=== PATIENT | female | born 1975 | race Caucasian/White ===

== ENCOUNTER 2019-06-04 08:21 | Emergency (ER) | payer OTHER ==
--- NOTE | 2019-06-04 08:38 | ERPHSYRPT ---
- History of Present Illness Time Seen by Provider: 06/04/19 08:38 Source: patient Exam Limitations: no limitations Physician History: The patient is a 44-year-old female who presents with a chief complaint of subjective fevers and chills that started this morning. 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 She endorsed some cough for the past month in addition to chest pain whenever she coughs. She was seen by her primary care provider within the last month and prescribed an antibiotic and steroids to take given her history of COPD. She will probably finished azithromycin earlier within the last month but did not take his steroids as prescribed. She denies headache, rhinorrhea, sore throat, shortness of breath with rest, active chest pain currently, dizziness, syncope. The patient reportedly still smokes cigarettes. she reportedly is up-to-date on her influenza vaccine disc disease Timing/Duration: today Allergies/Adverse Reactions: No Known Drug Allergies Allergy (Verified 06/04/19 08:39) Home Medications: Montelukast Sodium 10 mg [Singulair 10 MG] 1 ea DAILY 06/04/19 [History] Omeprazole 1 ea DAILY 06/04/19 [History] Paroxetine HCl [Paroxetine ER] 1 ea DAILY 06/04/19 [History] Umeclidinium Brm/Vilanterol Tr [Anoro Ellipta 62.5-25 Mcg INH] 1 ea DAILY [History] Hx Tetanus, Diphtheria Vaccination/Date Given: Yes Hx Influenza Vaccination/Date Given: No Hx Pneumococcal Vaccination/Date Given: No - Review of Systems Constitutional: Fever, Chills, Other (Diaphoresis) Ears, Nose, & Throat: No Ear Pain, No Ear Discharge, No Hearing Changes, No Nose Pain, No Nose Congestion, No Nose Discharge, No Sinus Drainage, No Epistaxis, No Mouth Pain, No Mouth Swelling, No Loose Teeth, No Throat Pain, No Throat Swelling Respiratory: Cough, Dyspnea on Exertion (SANCHEZ), No Dyspnea, No Stridor, No Wheezing Cardiac: No Chest Pain, No Edema, No Palpitations Abdominal/Gastrointestinal: No Symptoms, No Nausea, No Vomiting Genitourinary Symptoms: No Symptoms Musculoskeletal: No Symptoms Skin: No Symptoms Neurological: No Symptoms, No Dizziness Psychological: No No Symptoms Endocrine: No No Symptoms Hematologic/Lymphatic: No No Symptoms Immunological/Allergic: No No Symptoms All Other Systems: Reviewed and Negative - Past Medical History Pertinent Past Medical History: Yes Neurological History: Other ENT History: No Pertinent History Cardiac History: High Cholesterol, Hypertension Respiratory History: No Pertinent History Endocrine Medical History: No Pertinent History Musculoskeletal History: No Pertinent History GI Medical History: No Pertinent History Other Medical History: HYPERTENSION - Past Surgical History Past Surgical History: Yes Gastrointestinal: Cholecystectomy Female Surgical History: Tubal Ligation Other Surgical History: GALLBLADDER - Social History Smoking Status: Current every day smoker How long have you smoked: 17 YEARS Exposure to second hand smoke: No Drug Use: none Patient Lives Alone: No Significant Family History: no pertinent family hx - Nursing Vital Signs Nursing Vital Signs: Initial Vital Signs Temperature 98.0 F 06/04/19 08:33 Pulse Rate 79 06/04/19 08:33 Respiratory Rate 18 06/04/19 08:33 Blood Pressure 154/81 06/04/19 08:33 O2 Sat by Pulse Oximetry 98 06/04/19 08:33 Pain Scale Pain Intensity 0 - Physical Exam General Appearance: no apparent distress, alert Eye Exam: PERRL/EOMI, eyes nml inspection, photophobia Ears, Nose, Throat Exam: normal ENT inspection, TMs normal, pharynx normal, moist mucous membranes, No TM abnormal (L), No pharyngeal erythema, No tonsillar exudate Neck Exam: normal inspection, non-tender, supple Respiratory Exam: normal breath sounds, lungs clear, airway intact, No chest tenderness, No respiratory distress, No diminished breath sounds, No accessory muscle use Cardiovascular Exam: regular rate/rhythm, normal heart sounds, normal peripheral pulses, No murmur, No friction rub, No gallop, No tachycardia Gastrointestinal/Abdomen Exam: soft Back Exam: normal inspection Extremity Exam: normal inspection Neurologic Exam: alert, oriented x 3, cooperative, normal mood/affect Skin Exam: normal color, warm, dry, No rash, No petechiae, No jaundice, No abrasion - Course Nursing assessment & vital signs reviewed: Yes EKG Interpreted by Me: RATE (67), Sinus Rhythm, Left [place] Deviation, NORMAL ST-T , Other (Negative for STEMI) - Radiology Exams Chest X-ray Interpretation: Reviewed by me, Teleradiologist Report, Negative Lab/Rad Data: Laboratory Results 06/04/19 Range/Units 09:15 Influenza Type A Ag NEGATIVE (NEGATIVE) Influenza Type B Ag NEGATIVE (NEGATIVE) RSV (PCR) NEGATIVE (Negative) - Progress Progress: unchanged Counseled pt/family regarding: lab results, need for follow-up, rad results, smoking cessation - Departure Departure Disposition: Home, Extended Care Facility Clinical Impression: Viral syndrome Condition: Stable Critical Care Time: No Referrals: AIME WILLIAMSON NP [Primary Care Provider] - Instructions: Fever of Unknown Origin, Cough, Adult (DC) Additional Instructions: Please follow-up with your primary care provider as needed
[2019-06-04 08:39] VITALS: PULSE 79
[2019-06-04 10:11] LABS: INFLUENZA A NEGATIVE (NEGATIVE); INFLUENZA B NEGATIVE (NEGATIVE); RESPIRATORY SYNCTIAL VIRUS NEGATIVE (Negative)
[2019-06-04 11:01] VITALS: BP 160/113; O2SAT 99
--- NOTE | 2019-06-04 19:11 | XRAY ---
Indication: Cough and lightheaded. Comparison: April 28, 2019. PA/lateral chest remains clear. Heart is not enlarged. Bony thorax intact again with old right rib fractures. Impression: Stable nonacute chest. Comment: Preliminary interpretation was made by [facility]. No critical discrepancy.
== END 2019-06-04 11:01 | disposition home or self-care (01) ==
LOC: ED 08:21
DX: B34.9 Viral infection, unspecified (principal)
CPT/HCPCS: 71046; 87631; 99284

== ENCOUNTER 2021-06-27 16:14 | Emergency (ER) | payer OTHER ==
[2021-06-27 18:37] LABS: ALBUMIN 4.3 g/dL (3.5-5.0); ALKALINE PHOSPHATASE 82 U/L (38-126); ANION GAP 16.4 MEQ/L (5-15); BLOOD UREA NITROGEN 15 mg/dL (7-17); CHLORIDE 107 mmol/L (98-107); Carbon Dioxide 17 mmol/L (22-30); EST GLOMERULAR FILTRATION RATE > 60.0 ML/MIN; Glucose 107 mg/dL (74-106); NT PRO BNP 138 pg/mL (0-450); Potassium 3.8 mmol/L (3.5-5.1); SGOT/AST 29 U/L (14-36); SGPT/ALT 11 U/L (0-35); SODIUM 137 mmol/L (137-145)
--- NOTE | 2021-06-27 18:46 | ERPHSYRPT ---
- History of Present Illness Time Seen by Provider: 06/27/21 17:30 Historian: patient Exam Limitations: no limitations Patient Subjective Stated Complaint: Chest pain Triage Nursing Assessment: Patient ambulated back to ED and transferred self to bed. Patient A+O X3. Patient's skin pink, warm and dry. Patient complains of left sided rib pain that goes into chest 710 that started around 0300. Lungs clear a/p el. Physician History: Patient is a 46-year-old female presents to our ED with complaints of chest pain. Patient states she is experiencing left-sided chest pain radiating towards the center. Patient states the pain feels superficial as it was emanating from her left rib. Pain started this morning at approximately 3 AM. Patient denies trauma. No nausea no vomiting no diaphoresis. No rash. Patient denies a history of the same. Symptoms are mild to moderate in intensity. No specific worsening improving factors. Patient voices no other complaints concerns at this time. Timing/Duration: today Activities at Onset: none Quality: aching Location: other (Left chest wall with radiation toward central chest.) Severity of Pain-Max: moderate Severity of Pain-Current: mild Associated Symptoms: denies symptoms Prior Chest Pain/Cardiac Workup: no prior chest pain Nitro Today/Relief: no nitro taken today Aspirin Treatment Today: no aspirin today Allergies/Adverse Reactions: No Known Drug Allergies Allergy (Verified 06/27/21 17:20) Home Medications: Montelukast Sodium 10 mg [Singulair 10 MG] 1 ea DAILY 06/04/19 [History] Omeprazole 1 ea DAILY 06/04/19 [History] Paroxetine HCl [Paroxetine ER] 1 ea DAILY 06/04/19 [History] Umeclidinium Brm/Vilanterol Tr [Anoro Ellipta 62.5-25 Mcg INH] 1 ea DAILY 06/04/19 [History] Hx Tetanus, Diphtheria Vaccination/Date Given: Yes Hx Influenza Vaccination/Date Given: No Hx Pneumococcal Vaccination/Date Given: No Immunizations Up to Date: Yes Travel Risk - International Travel Have you traveled outside of the country in past 3 weeks: No - Coronavirus Screening Are you exhibiting any of the following symptoms?: No Close contact with a COVID-19 positive Pt in past 14-21 Days: No - Vaccine Status Have you recieved a Covid-19 vaccination: No - Review of Systems Constitutional: No Symptoms, No Fever, No Chills Eyes: No Symptoms Ears, Nose, & Throat: No Symptoms Respiratory: No Symptoms, No Cough, No Dyspnea Cardiac: No Symptoms, No Chest Pain, No Edema, No Syncope Abdominal/Gastrointestinal: No Symptoms, No Abdominal Pain, No Nausea, No Vomiting, No Diarrhea Genitourinary Symptoms: No Symptoms, No Dysuria Musculoskeletal: No Symptoms, No Back Pain, No Neck Pain Skin: No Symptoms, No Rash Neurological: No Symptoms, No Dizziness, No Focal Weakness, No Sensory Changes Psychological: No Symptoms Endocrine: No Symptoms Hematologic/Lymphatic: No Symptoms Immunological/Allergic: No Symptoms All Other Systems: Reviewed and Negative - Past Medical History Pertinent Past Medical History: Yes Neurological History: Other ENT History: No Pertinent History Cardiac History: High Cholesterol, Hypertension Respiratory History: No Pertinent History Endocrine Medical History: No Pertinent History Musculoskeletal History: No Pertinent History GI Medical History: No Pertinent History Other Medical History: HYPERTENSION - Past Surgical History Past Surgical History: Yes Gastrointestinal: Cholecystectomy Female Surgical History: Tubal Ligation Other Surgical History: GALLBLADDER - Social History Smoking Status: Never smoker How long have you smoked: 17 YEARS Exposure to second hand smoke: No Drug Use: none Patient Lives Alone: No Significant Family History: no pertinent family hx - Female History Hx Now: No - Nursing Vital Signs Nursing Vital Signs: Initial Vital Signs Pulse Rate 80 06/27/21 17:21 Respiratory Rate 18 06/27/21 17:21 Blood Pressure 157/76 06/27/21 17:21 O2 Sat by Pulse Oximetry 99 06/27/21 17:21 Pain Scale Pain Intensity 7 - Physical Exam General Appearance: no apparent distress, alert Eye Exam: PERRL/EOMI, eyes nml inspection Ears, Nose, Throat Exam: normal ENT inspection, moist mucous membranes Neck Exam: normal inspection, non-tender, supple, full range of motion Respiratory Exam: normal breath sounds, lungs clear, No respiratory distress Cardiovascular Exam: regular rate/rhythm, normal heart sounds Gastrointestinal/Abdomen Exam: soft, No tenderness, No mass Back Exam: normal inspection, No CVA tenderness, No vertebral tenderness Extremity Exam: normal inspection, normal range of motion Neurologic Exam: alert, oriented x 3, cooperative, normal mood/affect, sensation nml, No motor deficits Skin Exam: normal color, warm, dry Lymphatic Exam: adenopathy SpO2 Interpretation: normal SpO2: 100 O2 Delivery: Room Air - Course Nursing assessment & vital signs reviewed: Yes EKG Interpreted by Me: RATE (89), Sinus Rhythm, NORMAL AXIS, NORMAL INTERVALS - CT Exams Chest CT Interpretation: Tele-radiologist Report (No comps. Negative PE. Normal chest.) Ordered Tests: Active Orders 24 hr Category Date Time Status Hydrochloric Acid Operator STAT Care 06/27/21 17:36 Active EKG-ER Only STAT Care 06/27/21 17:35 Active IV Insertion STAT Care 06/27/21 17:35 Active Pulse Oximetry (ED) STAT Care 06/27/21 17:35 Active CHEST WITH CONTRAST [CT] Stat Exams 06/27/21 20:27 Taken CBC W DIFF Stat Lab 06/27/21 18:00 Completed CMP Stat Lab 06/27/21 18:00 Completed D-DIMER QUANTITATIVE Stat Lab 06/27/21 18:00 Completed Ferritin Stat Lab 06/27/21 Ordered Manual Differential NC Stat Lab 06/27/21 18:00 Completed NT PRO BNP Stat Lab 06/27/21 18:00 Completed TROPONIN Q3H Lab 06/27/21 18:00 Completed TROPONIN Q3H Lab 06/27/21 22:00 Completed TROPONIN Q3H Lab 06/27/21 23:45 Ordered TROPONIN Q3H Lab 06/28/21 02:45 Ordered TROPONIN Q3H Lab 06/28/21 05:45 Ordered Medication Summary Discontinued Medications Generic Name Dose Route Start Last Admin Trade Name Freq PRN Reason Stop Dose Admin Aspirin 324 mg 06/27/21 19:00 06/27/21 19:06 Aspirin 81 Mg Tab.Chew PO 06/27/21 19:01 324 mg STAT ONE Administration Dexamethasone Sodium Phosphate 8 mg 06/27/21 20:31 06/27/21 20:38 Dexamethasone Sod Phosphate 10 Mg/Ml PO 06/27/21 20:32 Not Given STAT ONE Lab/Rad Data: Laboratory Result Diagrams 06/27/21 18:00 06/27/21 18:00 Laboratory Results 06/27/21 06/27/21 06/27/21 Range/Units 22:00 18:50 18:00 WBC (4.0-10.5) K/mm3 RBC (4.1-5.4) M/mm3 Hgb (12.0-16.0) gm/dl Hct (35-47) % MCV (78-100) fl MCH (26-32) pg MCHC (32-36) g/dl RDW (11.5-14.0) % Plt Count (150-450) K/mm3 MPV (7.5-11.0) fl D-Dimer (215-500) ng/mL Sodium (137-145) mmol/L Potassium (3.5-5.1) mmol/L Chloride (98-107) mmol/L Carbon Dioxide (22-30) mmol/L Anion Gap (5-15) MEQ/L BUN (7-17) mg/dL Creatinine (0.52-1.04) mg/dL Estimated GFR ML/MIN Glucose (74-106) mg/dL Calcium (8.4-10.2) mg/dL Total Bilirubin (0.2-1.3) mg/dL AST (14-36) U/L ALT (0-35) U/L Alkaline Phosphatase (38-126) U/L Troponin I < 0.012 < 0.012 (0.000-0.034) ng/mL NT-Pro-B Natriuret Pep (0-450) pg/mL Serum Total Protein (6.3-8.2) g/dL Albumin (3.5-5.0) g/dL ABO Group A Rh Factor POSITIVE Antibody Screen NEGATIVE (NEGATIVE) 06/27/21 06/27/21 06/27/21 Range/Units 18:00 18:00 18:00 WBC 9.3 (4.0-10.5) K/mm3 RBC 4.66 (4.1-5.4) M/mm3 Hgb 7.1 L (12.0-16.0) gm/dl Hct 26.9 L (35-47) % MCV 57.7 L (78-100) fl MCH 15.2 L (26-32) pg MCHC 26.4 L (32-36) g/dl RDW 21.0 H (11.5-14.0) % Plt Count 354 (150-450) K/mm3 MPV 9.4 (7.5-11.0) fl D-Dimer 844 H* (215-500) ng/mL Sodium 137 (137-145) mmol/L Potassium 3.8 (3.5-5.1) mmol/L Chloride 107 (98-107) mmol/L Carbon Dioxide 17 L (22-30) mmol/L Anion Gap 16.4 H (5-15) MEQ/L BUN 15 (7-17) mg/dL Creatinine 0.70 (0.52-1.04) mg/dL Estimated GFR > 60.0 ML/MIN Glucose 107 H (74-106) mg/dL Calcium 9.0 (8.4-10.2) mg/dL Total Bilirubin 0.60 (0.2-1.3) mg/dL AST 29 (14-36) U/L ALT 11 (0-35) U/L Alkaline Phosphatase 82 (38-126) U/L Troponin I (0.000-0.034) ng/mL NT-Pro-B Natriuret Pep 138 (0-450) pg/mL Serum Total Protein 8.0 (6.3-8.2) g/dL Albumin 4.3 (3.5-5.0) g/dL ABO Group Rh Factor Antibody Screen (NEGATIVE) - Progress Progress: improved Air Movement: good Progress Note: Work-up reveals an elevated D-dimer. CTA chest negative. Troponin I negative. Troponin II pending. Hemoglobin 7.1. MCV is low as well. Patient has a microcytic anemia. Patient states her mother of colon cancer at age 47. Patient has never had a colonoscopy. Patient refused a blood transfusion. Case discussed with Dr. Sanchez. We will start patient on oral iron supplements. Patient will call Dr. Sanchez's office in the morning and he will see to it that patient has a colonoscopy. 06/27/21 21:47 Patient refused a blood transfusion. 06/27/21 23:22 Blood Culture(s) Obtained: No Antibiotics given: No Discussed with : Theresa Will see patient in: office Counseled pt/family regarding: lab results, diagnosis, need for follow-up, rad results - Departure Departure Disposition: Home Clinical Impression: Microcytic anemia, Chest wall pain Condition: Stable Critical Care Time: No Referrals: AIME WILLIAMSON, PHOTONICS ENGINEERING TECHNICIAN [Primary Care Provider] - Follow up/PCP as directed Instructions: Anemia Caused by Low Iron, Adult (DC) Additional Instructions: Discharge/Care Plan CHEMA SPEARS NATANAEL was seen on 06/27/21 in the Emergency Room. The patient was counseled regarding Diagnosis,Lab results, Imaging studies, need for follow up and when to return to the Emergency Room. Prescriptions given: Discharge Note I have spoken with the patient and/or caregivers. I have explained the patient's condition, diagnosis and treatment plan based on the information available to me at this time. I have answered the patient's and/or caregiver's questions and addressed any concerns. The patient and/or caregivers have as good understanding of the patient's diagnosis, condition and treatment plan as can be expected at this point. The vital signs have been stable. The patient's condition is stable and appropriate for discharge from the emergency department. The patient will pursue further outpatient evaluation with the primary care physician or other designated or consulting physician as outlined in the discharge instructions. The patient and/or caregivers are agreeable to this plan of care and follow-up instructions have been explained in detail. The patient an d/or caregivers have received these instruction. The patient/and or caregivers are aware that any significant change in condition or worsening of symptoms should prompt an immediate return to this or the closest emergency department or call 911. Prescriptions: Ferrous Sulfate 325 mg PO TID 14 Days #42 tablet
[2021-06-27] MEDS ORDERED: BABY ASPIRIN 81 MG CHEW PO ONE (19:00)
[2021-06-27 19:08] LABS: Hematocrit 26.9 % (35-47); Hemoglobin 7.1 gm/dl (12.0-16.0); Mean Cell Volume 57.7 fl (78-100); Mean Corpuscular Hemoglobin 15.2 pg (26-32); Mean Corpuscular Hgb Concent. 26.4 g/dl (32-36); Mean Platelet Volume 9.4 fl (7.5-11.0); Platelet Count 354 K/mm3 (150-450); Red Blood Count 4.66 M/mm3 (4.1-5.4); White Blood Count 9.3 K/mm3 (4.0-10.5)
[2021-06-27 20:29] VITALS: O2SAT 100
[2021-06-27] MEDS ORDERED: DECADRON 10MG INJ. PO ONE (20:31)
[2021-06-27 20:47] LABS: ABO TYPING A; Antibody Screen NEGATIVE (NEGATIVE); RH TYPING POSITIVE
[2021-06-27 23:34] VITALS: BP 148/80; PULSE 77
[2021-06-28 01:08] LABS: Iron 26 ug/dL (37-170); Iron Saturation 6 % (20-39); TIBC 432 ug/dL (265-462)
--- NOTE | 2021-06-28 08:36 | XRAY ---
Indication: Chest pain. Elevated d-dimer. Multiple contiguous axial images obtained through the chest using 80 cc Isovue 370 contrast and PE protocol. Comparison: None There is adequate opacification of the pulmonary arteries to include the lobar and segmental branches. No pulmonary embolus. Heart is not enlarged. Aorta is normal in course and caliber. No pathologic mediastinal/hilar lymphadenopathy. Lungs demonstrates minimal bilateral dependent atelectasis. No suspicious pulmonary mass, infiltrate, effusion, or pneumothorax. Bony thorax intact with incidental old bilateral rib fractures.. Limited upper abdomen demonstrates cholecystectomy clips. Impression: Negative pulmonary embolus. No acute cardiopulmonary abnormalities.
== END 2021-06-27 23:35 | disposition home or self-care (01) ==
LOC: ED 16:14
DX: R07.89 Other chest pain (principal); D50.9 Iron deficiency anemia, unspecified; I10 Essential (primary) hypertension; E78.5 Hyperlipidemia, unspecified; Z79.899 Other long term (current) drug therapy
CPT/HCPCS: 36000; 36415; 71260; 80053; 82728; 82746; 83540; 83550; 83880; 84466; 84484; 85025; 85045; 85379; 86850; 86900; 86901; 93005; 93041; 94760; 99284; A9270-GY

== ENCOUNTER 2021-07-07 06:39 | Day surgery (SDC) | payer OTHER ==
[2021-07-07] MEDS ORDERED: Lactated Ringers 1,000 ML IV SCH (07:00)
[2021-07-07 07:16] VITALS: O2SAT 100
[2021-07-07] MEDS ORDERED: Versed 2 MG/2 ML Injection ONE (07:26)
[2021-07-07] MEDS ORDERED: DIPRIVAN 200 MG/20 ML IV ONE ×2 (07:26→07:49)
[2021-07-07 09:12] VITALS: BP 171/91; PULSE 83
--- NOTE | 2021-07-07 09:12 | OP ---
SURGERY DATE/TIME: 07/07/2021 0731 PREOPERATIVE DIAGNOSIS: Iron deficiency anemia. POSTOPERATIVE DIAGNOSES: 1) Minimal gastritis. 2) Normal colon. PROCEDURES: 1) Diagnostic EGD. 2) Colonoscopy. SURGEON: Robert Sanchez M.D. ANESTHESIA: MAC by Refugio Roy CRNA. ESTIMATED BLOOD LOSS: None. SPECIMENS: None. DESCRIPTION OF PROCEDURE: After informed written consent was obtained, the patient was taken to the endoscopy suite. She underwent monitored anesthesia and had a bite block inserted. After anesthesia was titrated to desired level of consciousness and the endoscope was inserted in the posterior oropharynx. Under direct visualization the esophagus was easily traversed. There was normal mucosal appearance. Upon entering the stomach normal gastroesophageal junction was appreciable with a normal gastric mucosa. The area of the pylorus inspected and noted to have some minimal inflammation in one small area with no active bleeding. The pylorus was traversed and the first and second portions of the duodenum were within normal limits. Upon withdrawal again all mucosal structures appeared unremarkable. Retroflexion showed no obvious lesions in the upper portions of the stomach. The scope was removed and the scopes were switched. Digital rectal exam showed normal sphincter tone and no internal lesions. The scope was inserted in the rectum and sequentially the entire colonic mucosa was traversed. The level of the cecum was reached and verified with direct visualization of the ileocecal valve. Upon withdrawal careful mucosal inspection revealed no gross abnormalities. Prior to withdrawal retroflexion was performed and showed no internal lesions. The scope was removed and the patient was transferred to the recovery room in good condition.
== END 2021-07-07 09:00 | disposition home or self-care (01) ==
LOC: SDC 06:39
PROVIDERS: ATTEND Family Medicine
DX: K29.70 Gastritis, unspecified, without bleeding (principal); D50.9 Iron deficiency anemia, unspecified
CPT/HCPCS: 93005; J2250; J2704

== ENCOUNTER 2021-09-28 13:15 | Emergency (ER) | payer OTHER ==
[2021-09-28] MEDS ORDERED: Reglan 10 MG/2 ML IV ONE (13:47)
[2021-09-28] MEDS ORDERED: BENADRYL 50 MG/ML IV ONE (13:47)
[2021-09-28] MEDS ORDERED: TYLENOL 325 MG PO ONE (13:47)
[2021-09-28] MEDS ORDERED: BENADRYL 50 MG/ML ONE (13:53)
[2021-09-28] MEDS ORDERED: TYLENOL 325 MG ONE (13:53)
[2021-09-28] MEDS ORDERED: Reglan 10 MG/2 ML ONE (13:53)
--- NOTE | 2021-09-28 13:55 | ERPHSYRPT ---
- History of Present Illness Time Seen by Provider: 09/28/21 13:46 Source: patient Exam Limitations: no limitations Patient Subjective Stated Complaint: patient states -"I have had a headache for 3 days, along with hypertension". Triage Nursing Assessment: patient arrived in er alert and oriented. Face is flushed and she is grimacing, holding head and stating that she has pain in her head that is 10/10 for the last 3 days. Physician History: 46 years old female with history of hypertension, GERD, anxiety/depression, migraines presented in the ER with 3-day history of generalized headache from frontal to occipital moderate to severe sharp currently 10/10 intensity headache, partial relief with taking routine antimigraine medications. Also reports associated increased light sensitivity but denies nausea vomiting, focal numbness tingling weakness/visual disturbance/difficulty speech. Patient reports this headache worse than her routine migraine. No fever chills or neck pain reported. Does report some right facial radiation. Patient also checked her blood pressure and it is high and currently 198 systolic. Timing/Duration: day(s) (3), constant, gradual onset, worse Quality: sharpness Head Pain Location: global Severity of Pain-Max: severe Severity of Pain-Current: severe Recent Head Trauma: no recent headache/trauma, occasional headaches Modifying Factors: Improves With: medication Associated Symptoms: facial pain, flushing, sensitive to light, No confusion, No fever/chills, No light-headedness, No loss of consciousness, No nausea/vomiting, No nasal congestion, No nasal drainage, No neck pain, No numbness in legs/feet, No sweating, No scotoma, No seizures, No sinus infection, No speech problems, No stiff neck, No trouble walking, No vision changes, No visual disturbance, No weakness Previous symptoms: same symptoms as today Allergies/Adverse Reactions: No Known Drug Allergies Allergy (Verified 07/06/21 13:11) Home Medications: Omeprazole 2 tab DAILY 06/04/19 [History] Paroxetine HCl [Paroxetine ER] 1 ea DAILY 06/04/19 [History] Umeclidinium Brm/Vilanterol Tr [Anoro Ellipta 62.5-25 Mcg INH] 1 ea DAILY 06/04/19 [History] Metoprolol Succinate 50 mg [Toprol Xl 50 MG] 50 mg PO DAILY 07/06/21 [His tory] Topiramate [Topiramate ER] 50 mg PO DAILY 07/06/21 [History] Hx Tetanus, Diphtheria Vaccination/Date Given: Yes Hx Influenza Vaccination/Date Given: No Hx Pneumococcal Vaccination/Date Given: No Immunizations Up to Date: No Travel Risk - International Travel Have you traveled outside of the country in past 3 weeks: No - Coronavirus Screening Are you exhibiting any of the following symptoms?: No Close contact with a COVID-19 positive Pt in past 14-21 Days: No - Vaccine Status Have you recieved a Covid-19 vaccination: No - Review of Systems Constitutional: No Symptoms Eyes: Photophobia Ears, Nose, & Throat: No Symptoms Respiratory: No Symptoms Cardiac: No Symptoms Abdominal/Gastrointestinal: No Symptoms Genitourinary Symptoms: No Symptoms Musculoskeletal: No Symptoms Skin: No Symptoms Neurological: Headache Psychological: No Symptoms Endocrine: No Symptoms Hematologic/Lymphatic: No Symptoms Immunological/Allergic: No Symptoms - Past Medical History Pertinent Past Medical History: Yes Neurological History: Other ENT History: No Pertinent History Cardiac History: High Cholesterol, Hypertension Respiratory History: COPD Endocrine Medical History: No Pertinent History Musculoskeletal History: No Pertinent History GI Medical History: GERD History: No Pertinent History Psycho-Social History: No Pertinent History Female Reproductive Disorders: No Pertinent History Other Medical History: HYPERTENSION,anemia,gerd - Past Surgical History Past Surgical History: Yes Neuro Surgical History: No Pertinent History Cardiac: No Pertinent History Respiratory: No Pertinent History Gastrointestinal: Cholecystectomy Genitourinary: No Pertinent History Musculoskeletal: No Pertinent History Female Surgical History: Tubal Ligation Other Surgical History: GALLBLADDER - Social History Smoking Status: Current every day smoker How long have you smoked: age 21 Exposure to second hand smoke: No Drug Use: none Patient Lives Alone: No Significant Family History: no pertinent family hx - Female History Hx Now: No - Nursing Vital Signs Nursing Vital Signs: Initial Vital Signs Temperature 97.4 F 09/28/21 13:19 Pulse Rate 68 09/28/21 13:19 Respiratory Rate 18 09/28/21 13:19 Blood Pressure 198/98 09/28/21 13:19 O2 Sat by Pulse Oximetry 97 09/28/21 13:19 Pain Scale Pain Intensity 0 - Physical Exam General Appearance: no apparent distress, alert, anxiety Eye Exam: PERRL/EOMI, eyes nml inspection Ears, Nose, Throat Exam: normal ENT inspection, TMs normal, pharynx normal, moist mucous membranes Neck Exam: normal inspection, non-tender, supple, full range of motion Respiratory Exam: normal breath sounds, lungs clear Cardiovascular Exam: regular rate/rhythm, normal heart sounds Gastrointestinal/Abdominal Exam: soft, normal bowel sounds, No tenderness Back Exam: normal inspection, normal range of motion, No CVA tenderness Extremity Exam: normal inspection, normal range of motion, pelvis stable Mental Status Exam: alert, oriented x 3, 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 Exam: normal hearing, normal speech, PERRL, No facial asymmetry, No facial droop, No facial paresthesias Coordination/Gait Exam: normal finger to nose, normal gait, normal cerebellar function, negative Romberg's sign Motor/Sensory Exam: no motor deficit, no sensory deficit, no pronator drift, negative Babinski's sign DTR Exam: bicep (R): 2+, bicep (L): 2+, knee (R): 2+, knee (L): 2+ Skin Exam: normal color SpO2 Interpretation: normal SpO2: 97 O2 Delivery: Room Air - Course EKG Interpreted by Me: RATE ([id number]), Sinus Rhythm, NORMAL AXIS, NORMAL INTERVALS, NORMAL QRS Ordered Tests: Active Orders 24 hr Category Date Time Status EKG-ER Only STAT Care 09/28/21 13:41 Completed IV Insertion STAT Care 09/28/21 13:41 Completed CHEST 1 VIEW (PORTABLE) Stat Exams 09/28/21 13:48 Completed CTA HEAD W AND/OR WO CONTRAST [CT] Stat Exams 09/28/21 13:40 Completed CBC W DIFF Stat Lab 09/28/21 13:53 Completed CMP Stat Lab 09/28/21 13:53 Completed NT PRO BNP Stat Lab 09/28/21 13:53 Completed TROPONIN Q3H Lab 09/28/21 13:53 Completed TROPONIN Q3H Lab 09/28/21 17:05 Completed Medication Summary Discontinued Medications Generic Name Dose Route Start Last Admin Trade Name Ivette PRN Reason Stop Dose Admin Acetaminophen 975 mg 09/28/21 13:47 09/28/21 13:55 Acetaminophen 325 Mg Tablet PO 09/28/21 13:48 975 mg STAT ONE Administration Acetaminophen Confirm 09/28/21 13:53 Acetaminophen 325 Mg Tablet Administered 09/28/21 13:54 Dose 975 mg .ROUTE .STK-MED ONE Clonidine 0.2 mg 09/28/21 16:57 09/28/21 17:00 Clonidine Hcl 0.1 Mg Tablet PO 09/28/21 16:58 Not Given STAT ONE Diphenhydramine HCl 25 mg 09/28/21 13:47 09/28/21 13:55 Diphenhydramine Hcl 50 Mg/Ml Vial IV 09/28/21 13:48 25 mg STAT ONE Administration Diphenhydramine HCl Confirm 09/28/21 13:53 Diphenhydramine Hcl 50 Mg/Ml Vial Administered 09/28/21 13:54 Dose 50 mg .ROUTE .STK-MED ONE Hydralazine HCl 10 mg 09/28/21 17:00 09/28/21 17:02 Hydralazine Hcl 20 Mg/Ml Vial IV 09/28/21 17:01 10 mg STAT ONE Administration Hydralazine HCl Confirm 09/28/21 17:01 Hydralazine Hcl 20 Mg/Ml Vial Administered 09/28/21 17:02 Dose 20 mg .ROUTE .STK-MED ONE Ketorolac Tromethamine 30 mg 09/28/21 15:56 09/28/21 16:06 Ketorolac Tromethamine 30 Mg/Ml Inj IV 09/28/21 15:57 30 mg STAT ONE Administration Ketorolac Tromethamine Confirm 09/28/21 16:01 Ketorolac Tromethamine 30 Mg/Ml Inj Administered 09/28/21 16:02 Dose 30 mg .ROUTE .STK-MED ONE Ketorolac Tromethamine Confirm 09/28/21 16:05 Ketorolac Tromethamine 30 Mg/Ml Inj Administered 09/28/21 16:06 Dose 30 mg .ROUTE .STK-MED ONE Metoclopramide HCl 10 mg 09/28/21 13:47 09/28/21 13:55 Metoclopramide Hcl 10 Mg/2 Ml Vial IV 09/28/21 13:48 10 mg STAT ONE Administration Metoclopramide HCl Confirm 09/28/21 13:53 Metoclopramide Hcl 10 Mg/2 Ml Vial Administered 09/28/21 13:54 Dose 10 mg .ROUTE .STK-MED ONE Lab/Rad Data: Laboratory Result Diagrams 09/28/21 13:53 09/28/21 13:53 Laboratory Results 09/28/21 09/28/21 09/28/21 Range/Units 17:05 13:53 13:53 WBC (4.0-10.5) K/mm3 RBC (4.1-5.4) M/mm3 Hgb (12.0-16.0) gm/dl Hct (35-47) % MCV (78-100) fl MCH (26-32) pg MCHC (32-36) g/dl RDW (11.5-14.0) % Plt Count (150-450) K/mm3 MPV (7.5-11.0) fl Gran % (36.0-66.0) % Eos # (Auto) (0-0.5) Absolute Lymphs (auto) (1.0-4.6) Absolute Monos (auto) (0.0-1.3) Lymphocytes % (24.0-44.0) % Monocytes % (0.0-12.0) % Eosinophils % (0.00-5.0) % Basophils % (0.0-0.4) % Absolute Granulocytes (1.4-6.9) Basophils # (0-0.4) Sodium 137 (137-145) mmol/L Potassium 4.2 (3.5-5.1) mmol/L Chloride 103 (98-107) mmol/L Carbon Dioxide 23 (22-30) mmol/L Anion Gap 14.3 (5-15) MEQ/L BUN 15 (7-17) mg/dL Creatinine 0.63 (0.52-1.04) mg/dL Estimated GFR > 60.0 ML/MIN Glucose 102 (74-106) mg/dL Calcium 9.1 (8.4-10.2) mg/dL Total Bilirubin 0.40 (0.2-1.3) mg/dL AST 17 (14-36) U/L ALT 11 (0-35) U/L Alkaline Phosphatase 62 (38-126) U/L Troponin I < 0.012 < 0.012 (0.000-0.034) ng/mL NT-Pro-B Natriuret Pep 314 (0-450) pg/mL Serum Total Protein 7.3 (6.3-8.2) g/dL Albumin 4.1 (3.5-5.0) g/dL 09/28/21 Range/Units 13:53 WBC 6.9 (4.0-10.5) K/mm3 RBC 4.84 (4.1-5.4) M/mm3 Hgb 13.6 (12.0-16.0) gm/dl Hct 41.3 (35-47) % MCV 85.3 (78-100) fl MCH 28.1 (26-32) pg MCHC 32.9 (32-36) g/dl RDW 17.3 H (11.5-14.0) % Plt Count 252 (150-450) K/mm3 MPV 10.3 (7.5-11.0) fl Gran % 69.0 H (36.0-66.0) % Eos # (Auto) 0.10 (0-0.5) Absolute Lymphs (auto) 1.30 (1.0-4.6) Absolute Monos (auto) 0.71 (0.0-1.3) Lymphocytes % 19.0 L (24.0-44.0) % Monocytes % 10.4 (0.0-12.0) % Eosinophils % 1.5 (0.00-5.0) % Basophils % 0.1 (0.0-0.4) % Absolute Granulocytes 4.73 (1.4-6.9) Basophils # 0.01 (0-0.4) Sodium (137-145) mmol/L Potassium (3.5-5.1) mmol/L Chloride (98-107) mmol/L Carbon Dioxide (22-30) mmol/L Anion Gap (5-15) MEQ/L BUN (7-17) mg/dL Creatinine (0.52-1.04) mg/dL Estimated GFR ML/MIN Glucose (74-106) mg/dL Calcium (8.4-10.2) mg/dL Total Bilirubin (0.2-1.3) mg/dL AST (14-36) U/L ALT (0-35) U/L Alkaline Phosphatase (38-126) U/L Troponin I (0.000-0.034) ng/mL NT-Pro-B Natriuret Pep (0-450) pg/mL Serum Total Protein (6.3-8.2) g/dL Albumin (3.5-5.0) g/dL - Progress Progress: improved Air Movement: good Progress Note: 09/28/21 17:33 [facility] Blood Culture(s) Obtained: No Antibiotics given: No Counseled pt/family regarding: lab results, diagnosis, need for follow-up, rad results - Departure Departure Disposition: Home Clinical Impression: Uncontrolled hypertension Migraine Qualifiers: Migraine type: unspecified Status migrainosus presence: without status migrainosus Intractability: not intractable Qualified Code(s): G43.909 - Migr maim, unspecified, not intractable, without status migrainosus Condition: Stable Critical Care Time: No Referrals: AIME WILLIAMSON NP [Primary Care Provider] - Follow up/PCP as directed (tomorrow for re evaluation) Instructions: Malignant Hypertension, Migraines (DC) Additional Instructions: follow up with PCP/Neurology for re evaluation . Monitor your blood pressure regularly, keep a log and follow-up with primary care to see if needs any adjustment in medications. Continue with your antimigraine medications as recommended. Return to ER for intractable headache, uncontrolled hypertension, numbness tingling weakness, chest pain palpitations or shortness of breath etc.
[2021-09-28 13:58] LABS: Absolute Neutrophil Ct (ANC) 4.73 (1.4-6.9); Basophil (Absolute #) 0.01 (0-0.4); Eosinophil % 1.5 % (0.00-5.0); Hematocrit 41.3 % (35-47); Hemoglobin 13.6 gm/dl (12.0-16.0); Mean Cell Volume 85.3 fl (78-100); Mean Corpuscular Hemoglobin 28.1 pg (26-32); Mean Corpuscular Hgb Concent. 32.9 g/dl (32-36); Mean Platelet Volume 10.3 fl (7.5-11.0); Monocyte (Absolute #) 0.71 (0.0-1.3); Monocytes % 10.4 % (0.0-12.0); Platelet Count 252 K/mm3 (150-450); Red Blood Count 4.84 M/mm3 (4.1-5.4); Red Cell Distribution Width 17.3 % (11.5-14.0); White Blood Count 6.9 K/mm3 (4.0-10.5)
[2021-09-28 14:15] LABS: ALBUMIN 4.1 g/dL (3.5-5.0); ALKALINE PHOSPHATASE 62 U/L (38-126); ANION GAP 14.3 MEQ/L (5-15); BLOOD UREA NITROGEN 15 mg/dL (7-17); CHLORIDE 103 mmol/L (98-107); Calcium 9.1 mg/dL (8.4-10.2); Carbon Dioxide 23 mmol/L (22-30); Creatinine 1 0.63 mg/dL (0.52-1.04); EST GLOMERULAR FILTRATION RATE > 60.0 ML/MIN; Glucose 102 mg/dL (74-106); NT PRO BNP 314 pg/mL (0-450); Potassium 4.2 mmol/L (3.5-5.1); SGOT/AST 17 U/L (14-36); SGPT/ALT 11 U/L (0-35); SODIUM 137 mmol/L (137-145); Total Protein 7.3 g/dL (6.3-8.2)
--- NOTE | 2021-09-28 14:41 | XRAY ---
Indication: Hypertension. Comparison: January 25, 2021. Portable chest again demonstrates normal heart and lungs. Bony thorax intact again with old bilateral rib fractures. No new/acute findings.
--- NOTE | 2021-09-28 15:05 | XRAY ---
Indication: Severe headache. Hypertension. Conventional contrast enhanced CTA head performed using 100 cc Isovue 370 contrast. 2-D sagittal and coronal reformatted images obtained. Additional 3-D reformatted images obtained using a separate workstation. Comparison: None Distal internal carotid arteries are normal in in course and caliber without arteriosclerotic disease, critical stenosis, objection, or AV malformation. Normal carotid terminus with normal branching A1 and M1 segments bilaterally. More distal anterior, middle cerebellar, anterior to indicating, and posterior communicating arteries are normal in CTA appearance. Distal right vertebral artery is dominant and larger in caliber. Remaining visualized basilar, left/right posterior cerebral, and left/right superior cerebellar arteries are normal in CTA appearance. Venous sinuses/drainages are unremarkable. No abnormal enhancing intra-or extra-axial mass. CT head without contrast demonstrates normal brain parenchyma, ventricles, and bony calvarium. Visualized paranasal sinuses and mastoid air cells are clear. Impression: Normal CTA head with contrast exam. Normal CT head without contrast exam.
[2021-09-28] MEDS ORDERED: TORAdol 30 mg Injection IV ONE (15:56)
[2021-09-28] MEDS ORDERED: TORAdol 30 mg Injection ONE ×2 (16:01→16:05)
[2021-09-28] MEDS ORDERED: CLONIDINE 0.1 MG TABLET PO ONE (16:57)
[2021-09-28] MEDS ORDERED: APRESOLINE 20 MG/ML INJ IV ONE (17:00)
[2021-09-28] MEDS ORDERED: APRESOLINE 20 MG/ML INJ ONE (17:01)
[2021-09-28 17:08] VITALS: PULSE 67
[2021-09-28 17:49] VITALS: BP 154/87
[2021-09-29 00:47] VITALS: O2SAT 97
== END 2021-09-28 18:01 | disposition home or self-care (01) ==
LOC: ED 13:15
DX: G43.909 Migraine, unspecified, not intractable, without status migrainosus (principal); I10 Essential (primary) hypertension; H53.143 Visual discomfort, bilateral; E78.5 Hyperlipidemia, unspecified; Z72.0 Tobacco use; Z79.899 Other long term (current) drug therapy
CPT/HCPCS: 36000; 36415; 70496; 71045; 80053; 83880; 84484; 85025; 93005; 96374; 96375; 99284; J0360; J1200; J1885; A9270-GY

== ENCOUNTER 2022-03-11 18:56 | Emergency (ER) | payer OTHER ==
--- NOTE | 2022-03-11 19:02 | ERPHSYRPT ---
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 She woke up this morning with headache and body aches including back pain and leg pain. She has had decreased appetite as well. She has not had any nausea vomiting or diarrhea. She does not have chest pain. She has no cough. She has no hemoptysis. She is not short of breath. She denies abdominal pain. Patient is a current daily smoker cigarettes and has a history of hypertension, gastroesophageal reflux disease and COPD. Patient has a history of COVID-19 infection in the past and she states she feels the same way she did when she tested positive for COVID infection. Timing/Duration: today Cough Quality/Degree: no cough Possible Cause: no prior episodes Modifying Factors: Improves With: nothing Associated Symptoms: headache, muscle aches Allergies/Adverse Reactions: No Known Drug Allergies Allergy (Verified 03/11/22 19:08) Home Medications: Omeprazole 2 tab DAILY 06/04/19 [History] Paroxetine HCl [Paroxetine ER] 1 ea DAILY 06/04/19 [History] Umeclidinium Brm/Vilanterol Tr [Anoro Ellipta 62.5-25 Mcg INH] 1 ea DAILY 06/04/19 [History] Metoprolol Succinate 50 mg [Toprol Xl 50 MG] 50 mg PO DAILY 07/06/21 [History] Topiramate [Topiramate ER] 50 mg PO DAILY 07/06/21 [History] Hx Tetanus, Diphtheria Vaccination/Date Given: Yes Hx Influenza Vaccination/Date Given: No Hx Pneumococcal Vaccination/Date Given: No Travel Risk - International Travel Have you traveled outside of the country in past 3 weeks: No - Coronavirus Screening Are you exhibiting any of the following symptoms?: Yes Symptoms: Headaches/Body Aches/Fatigue Close contact with a COVID-19 positive Pt in past 14-21 Days: Yes - Vaccine Status Have you recieved a Covid-19 vaccination: No - Review of Systems Constitutional: No Symptoms Eyes: No Symptoms Ears, Nose, & Throat: No Symptoms Respiratory: No Symptoms Cardiac: No Symptoms Abdominal/Gastrointestinal: Appetite Changes, No Abdominal Pain, No Nausea, No Vomiting, No Diarrhea Musculoskeletal: Arthralgias, Myalgias Skin: No Symptoms Neurological: Headache Psychological: No Symptoms Endocrine: No Symptoms Hematologic/Lymphatic: No Symptoms Immunological/Allergic: No Symptoms All Other Systems: Reviewed and Negative - Past Medical History Pertinent Past Medical History: Yes Neurological History: Other ENT History: No Pertinent History Cardiac History: High Cholesterol, Hypertension Respiratory History: COPD Endocrine Medical History: No Pertinent History Musculoskeletal History: No Pertinent History GI Medical History: GERD History: No Pertinent History Psycho-Social History: No Pertinent History Female Reproductive Disorders: No Pertinent History Other Medical History: HYPERTENSION,anemia,gerd - Past Surgical History Past Surgical History: Yes Neuro Surgical History: No Pertinent History Cardiac: No Pertinent History Respiratory: No Pertinent History Gastrointestinal: Cholecystectomy Genitourinary: No Pertinent History Musculoskeletal: No Pertinent History Female Surgical History: Tubal Ligation Other Surgical History: GALLBLADDER - Social History Smoking Status: Current every day smoker How long have you smoked: age 21 Exposure to second hand smoke: No Drug Use: none Patient Lives Alone: No Significant Family History: no pertinent family hx - Nursing Vital Signs Nursing Vital Signs: Initial Vital Signs Temperature 98.4 F 03/11/22 19:08 Respiratory Rate 14 03/11/22 19:08 Blood Pressure 135/79 03/11/22 19:08 O2 Sat by Pulse Oximetry 97 03/11/22 19:08 Pain Scale Pain Intensity 4 - Physical Exam General Appearance: no apparent distress, alert, anxiety, obese Eye Exam: PERRL/EOMI, eyes nml inspection Ears, Nose, Throat Exam: normal ENT inspection, TMs normal, pharynx normal, moist mucous membranes Neck Exam: normal inspection, non-tender, supple, full range of motion Respiratory Exam: normal breath sounds, lungs clear, airway intact, No chest tenderness, No respiratory distress Cardiovascular Exam: regular rate/rhythm, normal heart sounds, normal peripheral pulses Gastrointestinal/Abdomen Exam: soft, normal bowel sounds, No tenderness Pelvic Exam: not done Rectal Exam: not done Back Exam: normal inspection, normal range of motion, No CVA tenderness, No vertebral tenderness Extremity Exam: normal inspection, normal range of motion, pelvis stable Neurologic Exam: alert, oriented x 3, 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, 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, normal mood/affect, nml cerebellar function, nml station & gait, sensation nml Skin Exam: normal color, warm, dry Lymphatic Exam: No adenopathy SpO2 Interpretation: normal O2 Delivery: Room Air Ordered Tests: Active Orders 24 hr Category Date Time Status BMP Stat Lab 03/11/22 19:55 Completed D-DIMER QUANTITATIVE Stat Lab 03/11/22 19:55 Completed Medication Summary Discontinued Medications Generic Name Dose Route Start Last Admin Trade Name Ivette PRN Reason Stop Dose Admin Hydrocodone Bitart/Acetaminophen 10 ml 03/11/22 20:07 03/11/22 20:10 Hydrocodone/Acetaminophen 5 Ml Udcup PO 03/11/22 20:08 10 ml STAT STA Administration Hydrocodone Bitart/Acetaminophen Confirm 03/11/22 20:10 Hydrocodone/Acetaminophen 5 Ml Udcup Administered 03/11/22 20:11 Dose 10 ml .ROUTE .[place] [employer] Lab/Rad Data: Laboratory Result Diagrams 03/11/22 19:55 Laboratory Results 03/11/22 03/11/22 03/11/22 Range/Units 19:55 19:55 19:55 D-Dimer 0.65 H* (0.0-0.50) mg/L Sodium 134 L (137-145) mmol/L Potassium 4.3 (3.5-5.1) mmol/L Chloride 104 (98-107) mmol/L Carbon Dioxide 19 L (22-30) mmol/L Anion Gap 15.4 H (5-15) MEQ/L BUN 11 (7-17) mg/dL Creatinine 0.60 (0.52-1.04) mg/dL Estimated GFR > 60.0 ML/MIN Glucose 102 (74-106) mg/dL Calcium 8.7 (8.4-10.2) mg/dL Influenza Type A Ag NEGATIVE (NEGATIVE) Influenza Type B Ag NEGATIVE (NEGATIVE) RSV (PCR) NEGATIVE (Negative) SARS-CoV-2 (PCR) POSITIVE A (NEGATIVE) - Progress Progress: improved, re-examined Air Movement: good Progress Note: 03/11/22 21:58 Medical decision making: This patient is positive for COVID-19 infection. This may increase the D-dimer and I think that is what has happened here. Patient does not want a CTA or bilateral lower extremity venous Dopplers. I agree that she does not need those test. Patient is not short of breath. Her room air oxygenation is 98 to 99%. She does not want steroids as well. Counseled pt/family regarding: lab results, diagnosis, need for follow-up - Departure Departure Disposition: Home Clinical Impression: COVID-19 virus infection Condition: Stable Critical Care Time: No Referrals: HARMAN ROJO MD [Primary Care Provider] - Follow up/PCP as directed Additional Instructions: Drink plenty fluids. Use ibuprofen 600 mg orally 3 times a day with food for 5 days. Quarantine yourself per your employer's protocol. Prescriptions: Hydrocodone/Acetaminophen [Hydrocodone-Acetamn 7.5-325/15] 10 ml PO Q8H PRN PRN #120 ml MDD 30 ml PRN Reason: Cough
[2022-03-11 19:21] VITALS: O2SAT 97
[2022-03-11] MEDS ORDERED: HYDROCODONE-ACETAMIN 2.5-108/5 ML SOLUTION PO STA ×2 (20:07→22:01)
[2022-03-11] MEDS ORDERED: HYDROCODONE-ACETAMIN 2.5-108/5 ML SOLUTION ONE ×2 (20:10→22:10)
[2022-03-11 20:12] LABS: ANION GAP 15.4 MEQ/L (5-15); BLOOD UREA NITROGEN 11 mg/dL (7-17); CHLORIDE 104 mmol/L (98-107); Calcium 8.7 mg/dL (8.4-10.2); Carbon Dioxide 19 mmol/L (22-30); EST GLOMERULAR FILTRATION RATE > 60.0 ML/MIN; Glucose 102 mg/dL (74-106); Potassium 4.3 mmol/L (3.5-5.1); SODIUM 134 mmol/L (137-145)
[2022-03-11 20:35] LABS: INFLUENZA A NEGATIVE (NEGATIVE); INFLUENZA B NEGATIVE (NEGATIVE); RESPIRATORY SYNCTIAL VIRUS NEGATIVE (Negative)
[2022-03-11 21:00] LABS: SARS-CoV-2 Xpert Express POSITIVE (NEGATIVE)
[2022-03-11 21:57] VITALS: PULSE 88
[2022-03-11 22:20] VITALS: BP 131/81
== END 2022-03-11 22:21 | disposition home or self-care (01) ==
LOC: ED 18:56
DX: U07.1 COVID-19 (principal); R51.9 Headache, unspecified; M79.10 Myalgia, unspecified site; I10 Essential (primary) hypertension; J44.9 Chronic obstructive pulmonary disease, unspecified; E78.5 Hyperlipidemia, unspecified; Z72.0 Tobacco use; Z79.891 Long term (current) use of opiate analgesic; Z79.899 Other long term (current) drug therapy; Z28.310 Unvaccinated for COVID-19; Z86.16 Personal history of COVID-19; Z20.822 Contact with and (suspected) exposure to COVID-19
CPT/HCPCS: 0241U; 36415; 80048; 85379; 99283; A9270-GY